=== PATIENT | male | born 1970 | race Caucasian/White ===

== ENCOUNTER → 2017-04-13 | Outpatient (CLI) | payer OTHER ==
[~2017-04-13] MED LIST: ATOR20TA PO; BENA20TA2 PO; CEPH500T PO; CYCL5TAB PO; METF10002 PO; OXYC1TAB9 PO
== END | disposition home or self-care (01) ==
LOC: RAD 09:16
PROVIDERS: ATTEND Neurological Surgery
DX: M48.54XA Collapsed vertebra, not elsewhere classified, thoracic region, initial encounter for fracture (principal); M41.24 Other idiopathic scoliosis, thoracic region
CPT/HCPCS: 72082